=== PATIENT | male | born 1960 | race Two or more races ===

== ENCOUNTER 2024-08-06 19:49 | Emergency (ER) | payer MEDICAID ==
[~2024-08-06] VITALS: Ht 172.7 cm; Wt 80.7 kg
[2024-08-06] MEDS: HYDROCODONE/APAP 5/325MG TABLET PO ONE (21:00)
[2024-08-06] MEDS ORDERED: HYDROCODONE/APAP 5/325MG TABLET ONE (21:23)
[2024-08-06 22:55] VITALS: BP 119/72; TEMP 98.3; O2SAT 97
== END 2024-08-06 23:20 ==
LOC: ER 20:24
DX: M79.601 Pain in right arm (principal); R60.9 Edema, unspecified; I10 Essential (primary) hypertension; E11.9 Type 2 diabetes mellitus without complications; J44.9 Chronic obstructive pulmonary disease, unspecified; Z79.02 Long term (current) use of antithrombotics/antiplatelets; Z86.718 Personal history of other venous thrombosis and embolism; Z93.0 Tracheostomy status; Z95.0 Presence of cardiac pacemaker
CPT/HCPCS: 93971-TC

== ENCOUNTER 2024-09-22 05:55 | Inpatient (IN) | payer MEDICAID ==
[~2024-09-22] VITALS: Ht 172.7 cm; Wt 80.7 kg
[2024-09-22 06:28] LABS: CARBON DIOXIDE 27 mmol/L (21-32); CHLORIDE 102 mmol/L (98-107); CREATININE 1.4 mg/dL (0.6-1.3); GLUCOSE 99 mg/dL (74-106); POTASSIUM 4.1 mmol/L (3.5-5.1); SODIUM SERUM 135 mmol/L (136-145); UREA NITROGEN, BLOOD 24 mg/dL (7-18)
[2024-09-22 06:35] LABS: BASOPHILS # (AUTO) 0.1 K/uL (0.0-0.2); EOSINOPHILS # (AUTO) 0.9 K/uL (0.0-0.7); EOSINOPHILS % (AUTO) 12.3 % (0.0-6.0); HEMATOCRIT 37 % (39-51); HEMOGLOBIN 12.2 g/dL (13.5-17.5); INR 1.03 (0.91-1.10); LYMPHOCYTES # (AUTO) 1.9 K/uL (0.8-4.8); LYMPHOCYTES % (AUTO) 26.4 % (20.0-44.0); MEAN CORPUSCULAR HEMOGLOBIN 29 PG (26.0-33.0); MEAN CORPUSCULAR HGB CONC 33 g/dl (31.0-36.0); MEAN CORPUSCULAR VOLUME 87 fL (80-96); MONOCYTES # (AUTO) 0.7 K/uL (0.1-1.30); MONOCYTES % (AUTO) 9.2 % (2.0-12.0); NEUTROPHILS # (AUTO) 3.7 K/uL (1.8-8.9); NEUTROPHILS % (AUTO) 51.1 % (43.0-81.0); PARTIAL THROMBOPLASTIN TIME 30.3 SEC (24.3-34.3); PLATELET COUNT (AUTO) 180 K/uL (150-450); PROTHROMBIN TIME 10.9 SECS (9.2-11.1); RED CELL DISTRIBUTION WIDTH 15.2 % (11.5-15.0); WHITE BLOOD COUNT (AUTO) 7.2 K/uL (4.3-11.0)
[2024-09-22 06:42] LABS: ALANINE AMINOTRANSFERASE 26 U/L (12-78); ALKALINE PHOSPHATASE 134 U/L (46-116); ASPARTATE AMINOTRANSFERASE 19 U/L (15-37); BILIRUBIN,DIRECT 0.1 mg/dL (0.0-0.2); BILIRUBIN,TOTAL 0.4 mg/dL (0.2-1.0); NT-PRO BNP 293 pg/mL (0-125); TOTAL PROTEIN, SERUM 8.1 g/dL (6.4-8.2)
[2024-09-22] MEDS ORDERED: KETOROLAC TROMETHAMINE 15 MG/ML VIAL ONE (06:43)
[2024-09-22] MEDS ORDERED: MORPHINE SULFATE INJ 4 MG/ML DISP.SYRIN ONE (06:43)
[2024-09-22] MEDS ORDERED: ONDANSETRON HCL/PF 4 MG/2 ML VIAL ONE (06:43)
[2024-09-22] MEDS: MORPHINE SULFATE INJ 2 MG/ML DISP.SYRIN IV ONE (06:44)
[2024-09-22] MEDS: KETOROLAC TROMETHAMINE 15 MG/ML VIAL IV ONE (06:44)
[2024-09-22] MEDS: ONDANSETRON HCL/PF 4 MG/2 ML VIAL IV ONE (06:45)
[2024-09-22] MEDS: IV NS 0.9% 1,000 ML BAG IV ONE (06:45)
[2024-09-22 08:30] VITALS: BP 133/74; TEMP 98.2; O2SAT 95
[2024-09-22] MEDS ORDERED: DICL100G26 TP (10:31)
[2024-09-22] MEDS ORDERED: ASPI-1169 GT (10:31)
[2024-09-22] MEDS ORDERED: NA P133E RC (10:31)
[2024-09-22] MEDS ORDERED: CLON0.5T4 GT (10:31)
[2024-09-22] MEDS ORDERED: MULT9LIQ6 GT (10:31)
[2024-09-22] MEDS ORDERED: CHLO473M2 MM (10:31)
[2024-09-22] MEDS ORDERED: DOCU100C36 GT (10:31)
[2024-09-22] MEDS ORDERED: SPIR25TA6 GT (10:31)
[2024-09-22] MEDS ORDERED: INSU100I30 SQ (10:31)
[2024-09-22] MEDS ORDERED: MELA10TA7 GT (10:31)
[2024-09-22] MEDS ORDERED: EMPA25TA GT (10:31)
[2024-09-22] MEDS ORDERED: INSU100V42 SQ (10:31)
[2024-09-22] MEDS ORDERED: SACU1TAB7 GT (10:31)
[2024-09-22] MEDS ORDERED: IPRA4AER IH (10:31)
[2024-09-22] MEDS ORDERED: PANT40SU GT (10:31)
[2024-09-22] MEDS ORDERED: IBUP-1955 GT (10:31)
[2024-09-22] MEDS ORDERED: HYDR-3642 GT (10:31)
[2024-09-22] MEDS ORDERED: ATOR20TA GT (10:31)
[2024-09-22] MEDS ORDERED: AMIO200T5 GT (10:31)
[2024-09-22] MEDS ORDERED: [UNRECOGNIZED DRUG - CODE] GT (10:31)
[2024-09-22] MEDS ORDERED: TAMS-12 GT (10:31)
[2024-09-22] MEDS ORDERED: ACET325T53 GT (10:31)
[2024-09-22] MEDS ORDERED: HYDR-3973 GT (10:31)
[2024-09-22] MEDS ORDERED: IPRA4AER INH (10:31)
[2024-09-22] MEDS ORDERED: MAGN400O6 GT (10:31)
[2024-09-22] MEDS ORDERED: SACC250C GT (10:31)
[2024-09-22] MEDS ORDERED: BISA10SU11 RC (10:31)
[2024-09-22] MEDS ORDERED: POLY17PO4 GT (10:31)
[2024-09-22] MEDS ORDERED: APIX5TAB GT (10:31)
[2024-09-22] MEDS ORDERED: ESCI10TA GT (10:31)
[2024-09-22] MEDS ORDERED: SENN-261 GT (10:31)
[2024-09-22] MEDS ORDERED: METO50TA16 GT (10:31)
[2024-09-22] MEDS ORDERED: TRAM50TA2 GT (10:31)
[2024-09-22] MEDS ORDERED: LOPE2TAB25 GT (10:31)
[2024-09-22] MEDS ORDERED: GABA300C GT (10:31)
[2024-09-22] MEDS ORDERED: hydrOXYzine 10 MG TABLET GT PRN (11:00)
[2024-09-22] MEDS ORDERED: MAGNESIUM HYDROXIDE 30 ML UDC GT PRN (11:00)
[2024-09-22] MEDS ORDERED: DOCUSATE SODIUM 100 MG CAPSULE PO PRN (11:00)
[2024-09-22] MEDS ORDERED: ACETAMINOPHEN 325 MG TABLET MC PRN (11:00)
[2024-09-22] MEDS ORDERED: DEXTROSE 50%-WATER 50 ML DISP.SYRIN IV PRN (11:00)
[2024-09-22] MEDS ORDERED: ACETAMINOPHEN 325 MG TABLET PO PRN (11:00)
[2024-09-22] MEDS ORDERED: NA PHOS,M-B/NA PHOS,DI-BA 1 EA ENEMA RC PRN (11:00)
[2024-09-22] MEDS ORDERED: TRAMADOL HCL 50 MG TABLET GT PRN (11:00)
[2024-09-22] MEDS ORDERED: BISACODYL SUPP (10 MG) 10 MG/SUPP.RECT SUPP.RECT RC PRN (11:00)
[2024-09-22] MEDS ORDERED: Z GUARD REMEDY 4 OZ OINT TP PRN (11:00)
[2024-09-22] MEDS ORDERED: SENNOSIDES 8.6 MG TABLET GT PRN (11:00)
[2024-09-22] MEDS ORDERED: ONDANSETRON HCL/PF 4 MG/2 ML VIAL IVP PRN (11:00)
[2024-09-22] MEDS: BLOOD SUGAR DIAGNOSTIC 1 EACH STRIP IN SCH (11:24)
[2024-09-22] MEDS: INSULIN REGULAR, HUMAN 100 UNIT/ML 3 ML VIAL SQ PRN (11:26)
[2024-09-22 12:00] VITALS: BP 91/55; TEMP 98; O2SAT 95
[2024-09-22] MEDS: GABAPENTIN 300 MG CAPSULE GT SCH (12:12)
[2024-09-22 16:00] VITALS: BP 146/78; TEMP 97.9; O2SAT 96
[2024-09-22] MEDS: CHLORHEXIDINE GLUCONATE 15 ML UDC MM SCH (16:51)
[2024-09-22] MEDS: METOPROLOL TARTRATE 50 MG TABLET GT SCH (16:51)
[2024-09-22] MEDS: APIXABAN 5 MG TABLET GT SCH (16:52)
[2024-09-22] MEDS: SACUBITRIL/VALSARTAN 49/51MG TABLET GT SCH (16:52)
[2024-09-22] MEDS: INSULIN GLARGINE, 100 UNIT/ML CARTRIDGE SQ SCH (16:52)
[2024-09-22] MEDS ORDERED: ALBUTEROL FS 2.5 MG/3 ML VIAL.NEB NEB PRN (17:30)
[2024-09-22] MEDS ORDERED: IPRATROPIUM NEB FS 0.5 MG/2.5 ML AMPUL.NEB NEB PRN (17:30)
[2024-09-22] MEDS: GUAIFENESIN 300 MG/15 ML UDC GT PRN (18:23)
[2024-09-22 20:05] VITALS: BP 104/66; TEMP 98.4; O2SAT 97
[2024-09-22] MEDS: clonazePAM 0.5 MG TABLET GT SCH (21:00)
[2024-09-22] MEDS: ATORVASTATIN 10 MG TABLET GT SCH (22:12)
[2024-09-22] MEDS: HYDROCODONE/APAP 5/325MG TABLET GT PRN (22:21)
[2024-09-23 00:06] VITALS: BP 135/75; TEMP 98.2; O2SAT 95
[2024-09-23 04:00] VITALS: BP 121/69; TEMP 98.1; O2SAT 96
[2024-09-23 06:38] LABS: BASOPHILS # (AUTO) 0.1 K/uL (0.0-0.2); BASOPHILS % (AUTO) 0.9 % (0.0-2.0); EOSINOPHILS # (AUTO) 0.9 K/uL (0.0-0.7); EOSINOPHILS % (AUTO) 12.7 % (0.0-6.0); HEMATOCRIT 39 % (39-51); HEMOGLOBIN 13.1 g/dL (13.5-17.5); LYMPHOCYTES # (AUTO) 1.7 K/uL (0.8-4.8); MEAN CORPUSCULAR HEMOGLOBIN 29 PG (26.0-33.0); MEAN CORPUSCULAR HGB CONC 34 g/dl (31.0-36.0); MEAN CORPUSCULAR VOLUME 87 fL (80-96); MONOCYTES # (AUTO) 0.6 K/uL (0.1-1.30); MONOCYTES % (AUTO) 9.4 % (2.0-12.0); NEUTROPHILS # (AUTO) 3.6 K/uL (1.8-8.9); PLATELET COUNT (AUTO) 191 K/uL (150-450); RED BLOOD CELL COUNT(AUTO) 4.51 MIL/uL (4.5-6.0); RED CELL DISTRIBUTION WIDTH 15.5 % (11.5-15.0); WHITE BLOOD COUNT (AUTO) 6.9 K/uL (4.3-11.0)
[2024-09-23 06:50] LABS: CREATININE 1.2 mg/dL (0.6-1.3); PHOSPHORUS 4.2 mg/dL (2.5-4.9); POTASSIUM 4.2 mmol/L (3.5-5.1)
[2024-09-23 07:31] LABS: THYROID STIMULATING HORMONE 9.66 uIU/mL (0.358-3.74)
[2024-09-23 08:00] VITALS: BP 122/82; TEMP 98.1; O2SAT 95
[2024-09-23] MEDS: POLYETHYLENE GLYCOL 3350 17 GM POWD.PACK GT SCH (09:00)
[2024-09-23] MEDS: TAMSULOSIN 0.4 MG CAP.SR.24H GT SCH (09:22)
[2024-09-23] MEDS: MULTIVIT W/MINERALS 1 TAB TABLET GT SCH (09:23)
[2024-09-23] MEDS: ASPIRIN 81 MG TAB.CHEW GT SCH (09:23)
[2024-09-23] MEDS: ESCITALOPRAM OXALATE (10 MG) 10 MG TABLET GT SCH (09:23)
[2024-09-23] MEDS: EMPAGLIFLOZIN 25 MG TABLET GT SCH (09:24)
[2024-09-23] MEDS: LACTOBACILLUS RHAMNOSUS GG 1 EACH CAP.SPRINK GT SCH (09:24)
[2024-09-23] MEDS: PANTOPRAZOLE 40 MG/PACK PACK GT SCH (09:24)
[2024-09-23] MEDS: AMIODARONE HCL 200 MG TABLET GT SCH (09:24)
[2024-09-23 12:00] VITALS: BP 117/73; TEMP 98; O2SAT 100
[2024-09-23] MEDS: GABAPENTIN 400 MG CAPSULE GT SCH (12:21)
[2024-09-23 16:00] VITALS: BP 116/79; TEMP 97.9; O2SAT 97
[2024-09-23 20:00] VITALS: BP 110/71; TEMP 97.7; O2SAT 96
[2024-09-24 04:00] VITALS: BP 109/72; TEMP 97.9; O2SAT 95
[2024-09-24 08:00] VITALS: BP 144/82; TEMP 98.1; O2SAT 96
[2024-09-24 09:31] VITALS: BP 144/82
[2024-09-24] MEDS: INSULIN GLARGINE, 100 UNIT/ML CARTRIDGE SQ SCH (09:33)
== END 2024-09-24 13:50 | DRG 198 ==
LOC: ER 05:57 → TELE1 07:54 → MEDSG1 09-23 16:03
PROVIDERS: ADMIT Nurse Practitioner Acute Care; ATTEND Nurse Practitioner Acute Care
DX: I25.10 Atherosclerotic heart disease of native coronary artery without angina pectoris (principal); N17.0 Acute kidney failure with tubular necrosis; J96.20 Acute and chronic respiratory failure, unspecified whether with hypoxia or hypercapnia; D68.59 Other primary thrombophilia; I48.0 Paroxysmal atrial fibrillation; I69.351 Hemiplegia and hemiparesis following cerebral infarction affecting right dominant side; E46 Unspecified protein-calorie malnutrition; I82.611 Acute embolism and thrombosis of superficial veins of right upper extremity; I69.398 Other sequelae of cerebral infarction; Z93.0 Tracheostomy status; E11.9 Type 2 diabetes mellitus without complications; I11.0 Hypertensive heart disease with heart failure; E03.9 Hypothyroidism, unspecified; E11.40 Type 2 diabetes mellitus with diabetic neuropathy, unspecified; E78.5 Hyperlipidemia, unspecified; I25.5 Ischemic cardiomyopathy; I50.32 Chronic diastolic (congestive) heart failure; I25.2 Old myocardial infarction; J44.9 Chronic obstructive pulmonary disease, unspecified; N40.0 Benign prostatic hyperplasia without lower urinary tract symptoms; Z93.1 Gastrostomy status; Z95.0 Presence of cardiac pacemaker; Z95.1 Presence of aortocoronary bypass graft; Z79.84 Long term (current) use of oral hypoglycemic drugs; Z74.09 Other reduced mobility; M79.621 Pain in right upper arm; Z68.27 Body mass index [BMI] 27.0-27.9, adult
CPT/HCPCS: 36415; 70450-TC; 71045-TC; 80048-TC; 80061-TC; 80076-TC; 82962-TC; 83735-TC; 83880; 84100-TC; 84443-TC; 84484-TC; 85025-TC; 85730-TC; 86850-TC; 87081-TC; 93307-TC; 93971-TC; 97112-TC; 97116-TC; 97530-TC; 97535-TC; G0378; J1815; J1885; J2270; J2405; J7030